=== PATIENT | male | born 1990 | race African-American/Black ===

== ENCOUNTER 2018-01-08 16:22 | Emergency (ER) | payer MEDICAID ==
[~2018-01-08] VITALS: Ht 177.8 cm; Wt 60.0 kg
[2018-01-08 16:55] VITALS: BP 120/88
== END 2018-01-08 17:59 | disposition home or self-care (01) ==
LOC: ER 16:22
DX: H66.93 Otitis media, unspecified, bilateral (principal); H61.23 Impacted cerumen, bilateral
CPT/HCPCS: 99283

== ENCOUNTER 2022-10-16 12:24 | Emergency (ER) | payer MEDICAID ==
[~2022-10-16] VITALS: Ht 177.8 cm; Wt 56.8 kg
[2022-10-16 12:29] VITALS: BP 120/76
[2022-10-16] MEDS ORDERED: ACETAMINOPHEN 325MG TABLET PO STA (12:34)
[2022-10-16] MEDS ORDERED: BENZ200C52 MT (13:47)
[2022-10-16] MEDS ORDERED: TOPUD MT (15:01)
== END 2022-10-16 14:05 | disposition home or self-care (01) ==
LOC: ER 13:15
DX: R05.9 Cough, unspecified (principal); M79.10 Myalgia, unspecified site; R50.9 Fever, unspecified
CPT/HCPCS: 71045; 99283